=== PATIENT | female | born 2005 ===

== ENCOUNTER 2025-03-28 11:01 | Outpatient (CLI) | payer BC, SELFPAY ==
[2025-03-28 19:12] LABS: Chlamydia DNA Amplified* NOT DETECTED (No Detected); GC DNA Amplified* NOT DETECTED (No Detected)
[2025-04-04 08:17] LABS: Pap Test Digital Imaging Done
== END 2025-03-28 11:02 | disposition home or self-care (01) ==
PROVIDERS: Visit Provider Physician Assistant
DX: Z12.4 Encounter for screening for malignant neoplasm of cervix (principal); Z11.3 Encounter for screening for infections with a predominantly sexual mode of transmission; Z13.6 Encounter for screening for cardiovascular disorders
CPT/HCPCS: 80061; 82947; 87491; 87591; 87624; 87625; 88141; 88142; 88175

== ENCOUNTER 2025-04-04 14:52 | Outpatient (CLI) | payer BC, SELFPAY ==
--- NOTE | 2025-04-04 15:00 | CRLHL7_ITS ---
For Patients: As a result of the Century Cures Act, medical imaging exams and procedure reports are released immediately into your electronic medical record. You may view this report before your referring provider. If you have questions, please contact your health care provider. INDICATION: Dysmenorrhea, other COMPARISON: None. TECHNIQUE: 2D virgen-scale and color Doppler images were acquired of the pelvis using a transabdominal and transvaginal approach. Transvaginal imaging performed to better visualize the endometrial stripe and ovaries. FINDINGS: Sonographic images demonstrate a normal size and smooth outer contour of the uterus. Uterus measures 8.1 cm in length by 3.4 cm in AP diameter by 5.1 cm in transverse dimension. The myometrium has a normal uniform echotexture. The endometrial lining measures 10 mm in composite thickness. The right ovary measures 2.5 x 1.7 x 1.9 cm in size and the left ovary measures 2.4 x 1.3 x 2.1 cm. The ovaries demonstrate normal arterial and venous blood flow on color Doppler analysis. There are no suspicious fluid collections within the cul-de-sac. IMPRESSION: Endometrial thickness 10 millimeters. No endometrial fluid or uterine fibroid. Normal ovaries. Dictated by Adriel Mcrae MD @ 04/04/2025 3:38:14 PM (Electronically Signed)
== END 2025-04-04 14:53 | disposition home or self-care (01) ==
LOC: US 14:53
PROVIDERS: Visit Provider Physician Assistant
DX: N94.6 Dysmenorrhea, unspecified (principal); R93.89 Abnormal findings on diagnostic imaging of other specified body structures
CPT/HCPCS: 76830; 76856; 93976